=== PATIENT | male | born 1990 | race Two or more races ===

== ENCOUNTER 2018-01-08 11:28 | Emergency (ER) | payer BC ==
[~2018-01-08] VITALS: Ht 185.4 cm; Wt 104.3 kg
[2018-01-08] MEDS ORDERED: PATANOL1 DROP OD (12:15)
[2018-01-08 12:23] VITALS: BP 130/79
--- NOTE | 2018-01-08 20:02 | Emergency Room Report ---
History of Present Illness General Chief Complaint: Flu Like Symptoms Source: Patient Present Illness HPI Patient's 27-year-old male who presented after increased bilateral eye swelling. Patient reports having gradual onset of symptoms. He reports having increased itchiness. He denies any thick discharge. He denies any visual changes. Patient denies any severe headache. He reported having some increased nasal congestion. Allergies: Coded Allergies: No Known Allergies (Unverified , 01/08/18) Patient History Past Medical History: see triage record Reviewed Nursing Documentation: PMH: Agreed; PSxH: Agreed Nursing Documentation-PMH Past Medical History: No Stated History Review of Systems All Other Systems: negative except mentioned in HPI Physical Exam Vital Signs Date Time Temp Pulse Resp B/P (MAP) Pulse Ox O2 Delivery O2 Flow Rate FiO2 01/08/18 11:34 97.9 97 20 130/79 96 Room Air 97.9 General Appearance: well appearing, no apparent distress, alert, GCS 15 Head: normocephalic, atraumatic Eyes: bilateral eye PERRL, bilateral eye other - bilateral eyelid mild swelling , no discharge, conjunctival erythema ENT: normal pharynx, uvula midline Neck: normal inspection, full range of motion Respiratory: lungs clear, normal breath sounds Cardiovascular #1: normal inspection Gastrointestinal: normal inspection, non tender Musculoskeletal: normal inspection, back normal Neurologic: normal inspection, alert, oriented x3, responsive, grocery clerk III-XII nml as tested Psychiatric: mood/affect normal Skin: no rash Medical Decision Making Diagnostic Impression: Primary Impression: Allergic conjunctivitis and rhinitis ER Course Patient presented for eye irritation and redness. Differential diagnosis included but wasn't limited to glaucoma, iritis, corneal abrasion, bacterial conjunctivitis, viral conjunctivitis. The patient appears to have an allergic conjunctivitis. Patient was given prescription for antihistamine eyedrops.The patient is advised to follow up with primary care doctor in 1-2 days. Patient is advised to return if any worsening condition or if any changes in status that are concerning. This report is dictated with [employer] fuel handler software which may occasionally lead to discrepancies related to use of this software. Last Vital Signs Date Time Temp Pulse Resp B/P (MAP) Pulse Ox O2 Delivery O2 Flow Rate FiO2 01/08/18 12:23 97.9 20 130/79 96 Room Air 97.9 01/08/18 11:44 97 Status: improved Disposition: HOME, SELF-CARE Condition: Stable Scripts Olopatadine (Patanol) 5 Ml Drops 1 DROP OD TWICE A DAY, #5 ML Prov: Gutierrez Brandon 01/08/18 Patient Instructions: Allergic Conjunctivitis, [id number] Gutierrez Brandon Jan 08, 2018 20:02
== END 2018-01-08 12:23 | disposition home or self-care (01) ==
LOC: EMR 12:03
DX: H10.13 Acute atopic conjunctivitis, bilateral (principal); J30.9 Allergic rhinitis, unspecified
CPT/HCPCS: 99283